=== PATIENT | male | born 1940 | race Caucasian/White ===

== ENCOUNTER 2023-12-17 16:57 | Inpatient (IN) | payer MEDICARE, OTHER ==
[~2023-12-17] VITALS: Ht 177.8 cm; Wt 74.0 kg
[2023-12-17 19:30] LABS: Basophils # (auto) 0.1 10 ^3/uL (0-0.2); Basophils % (auto) 1.3 % (0.0-2.0); Eosinophils # (auto) 0.4 10 ^3/uL (0-0.8); Eosinophils % (auto) 5.8 % (0.0-7.0); Hemoglobin 9.3 g/dL (13.5-17.5); Lymphocytes % (auto) 14.7 % (10.0-50.0); Monocytes # (auto) 0.5 10 ^3/uL (0-1.3); Monocytes % (auto) 7.5 % (0.0-12.0); Neutrophils % (auto) 70.7 % (37.0-80.0); Red Blood Cells 2.99 10^6/uL (4.5-5.90); Red Cell Distribution Width 16.6 % (11.8-14.3); White Blood Cell 7.1 10^3/uL (4.4-10.8)
[2023-12-17 19:40] LABS: Chloride 108 mmol/L (98-107); Sodium 142 mmol/L (136-145)
[2023-12-17 19:42] LABS: Calcium 8.8 mg/dL (8.5-10.1)
[2023-12-17 19:46] LABS: BUN/Creatinine Ratio 5.3 (10.0-20.0); Blood Urea Nitrogen 22 mg/dL (9-23); Glucose 150 mg/dL (74-106)
[2023-12-17 19:55] LABS: Anion Gap 5 (5-15); Carbon Dioxide 29 mmol/L (20-30)
[2023-12-17] MEDS ORDERED: AZITHROMYCIN 500MG/ 250ML 250 ML IV ONE (23:45)
[2023-12-17] MEDS ORDERED: PIPERACILLIN-TAZOB 3.375GM 100 ML IV ONE (23:45)
[2023-12-17] MEDS ORDERED: CLOPIDOGREL BISULFATE 75 MG TAB PO ONE (23:45)
[2023-12-18] MEDS ORDERED: DEXTROSE (50%) 50ML SYRG IV PRN (01:00)
[2023-12-18] MEDS ORDERED: ONDANSETRON HCL 4 MG/2 ML VIAL IV PRN (01:00)
[2023-12-18] MEDS ORDERED: AZITHROMYCIN 500MG/ 250ML 250 ML IV SCH (05:00)
[2023-12-18 08:10] VITALS: RESP 14; O2SAT 96
[2023-12-18] MEDS: ACCU-CHEK COMFORT CURVE STRIP VI SCH ×4 (09:50→22:45)
[2023-12-18] MEDS: LEVOTHYROXINE SODIUM 25 MCG TAB PO SCH (09:51)
[2023-12-18] MEDS: InsuLIN REG 1unit/0.01ml Soln (100units/ml) SC SCH ×4 (09:51→22:00)
[2023-12-18] MEDS: CALCIUM ACETATE 667 MG CAP PO SCH ×3 (09:51→18:34)
[2023-12-18] MEDS ORDERED: SODIUM CHL 0.9% 1000 ML BAG XX ONE (10:00)
[2023-12-18] MEDS: TICAGRELOR 90 MG TAB PO SCH ×2 (10:11→23:10)
[2023-12-18] MEDS: NIFEdipine ER 30 MG TAB PO SCH (10:14)
[2023-12-18] MEDS: FUROSEMIDE 40 MG TAB PO SCH (10:14)
[2023-12-18] MEDS ORDERED: hydrALAZINE HCL 20 MG/ML VL IV PRN (10:30)
[2023-12-18 11:24] LABS: Basophils # (auto) 0.1 10 ^3/uL (0-0.2); Eosinophils # (auto) 0.3 10 ^3/uL (0-0.8); Hemoglobin 9.6 g/dL (13.5-17.5); Monocytes # (auto) 0.6 10 ^3/uL (0-1.3); White Blood Cell 7.9 10^3/uL (4.4-10.8)
[2023-12-18 11:27] LABS: Basophils % (auto) 0.8 % (0.0-2.0); Eosinophils % (auto) 3.8 % (0.0-7.0); Lymphocytes % (auto) 12.4 % (10.0-50.0); Mean Corpuscular Hemoglobin 31.4 pg (28.0-32.0); Mean Corpuscular Hgb Conc. 31.1 g/dL (32.0-36.0); Mean Corpuscular Volume 100.8 fL (80.0-100.0); Monocytes % (auto) 7.1 % (0.0-12.0); Neutrophils % (auto) 75.9 % (37.0-80.0); Nucleated Red Blood Cells % 0.3 %; Red Blood Cells 3.08 10^6/uL (4.5-5.90); Red Cell Distribution Width 16.7 % (11.8-14.3)
[2023-12-18 11:39] LABS: INR 1.04 (0.9-1.15); Partial Thromboplastin Time 32.1 SEC (24.5-34.5); Prothrombin Time 10.9 sec (9.3-11.8)
[2023-12-18 11:48] LABS: Alkaline Phosphatase 88 U/L (46-116); Anion Gap 9 (5-15); BUN/Creatinine Ratio 4.7 (10.0-20.0); Blood Urea Nitrogen 21 mg/dL (9-23); Calcium 8.6 mg/dL (8.5-10.1); Carbon Dioxide 25 mmol/L (20-30); Chloride 107 mmol/L (98-107); Glucose 164 mg/dL (74-106); Potassium 3.9 mmol/L (3.5-5.1); Sodium 141 mmol/L (136-145); Triglycerides 115 mg/dL (< 150)
[2023-12-18 11:49] LABS: LDL Cholesterol 53 mg/dL (< 100)
[2023-12-18 11:50] LABS: Alanine Aminotransferase < 9 U/L (7-40); Albumin 3.5 g/dL (3.2-4.8); Aspartate Aminotransferase 12 U/L (13-40); Bilirubin, Total 0.4 mg/dL (0.2-1.0); Cholesterol 106 mg/dL (< 200); HDL Cholesterol 26 mg/dL (40-59); Total Protein 6.5 g/dL (5.7-8.2)
[2023-12-18 11:56] LABS: CRP High Sensitivity 3.84 mg/dL (<1.0)
[2023-12-18 12:00] LABS: Lipase 28 U/L (12-53); Magnesium 2.1 mg/dL (1.6-2.6)
[2023-12-18] MEDS ORDERED: cefTRIAXone 1GM/50ML D5W 50 ML IV ONE (12:45)
[2023-12-18] MEDS ORDERED: PIPERACILLIN-TAZOB 2.25GM 0.75 GM in D5W 5% 50 ML IV SCH (15:45)
[2023-12-18] MEDS ORDERED: VANCOMYCIN PER PHARMACY 0 MG IV SCH (15:45)
[2023-12-18 16:56] LABS: Urine Epithelial Cast None Seen /hpf (<5)
[2023-12-18 17:23] LABS: Urine Bacteria NONE SEEN /hpf (None Seen); Urine Blood Negative /uL (Negative); Urine Clarity Clear (Clear); Urine Color Yellow (Yellow); Urine Protein, UAD 2+ (Negative); Urine Specific Gravity 1.012 (1.001-1.035); Urine Urobilinogen Normal (Negative); Urine WBC 1 /hpf (0 - 3); Urine pH 7.5 (5.0-8.0)
[2023-12-18 17:25] LABS: Amphetamine Screen, Urine Neg (NEGATIVE); Barbiturate Scree,Urine Neg (NEGATIVE); Benzodiazephine Screen, Urine Neg (NEGATIVE); Cannabinoid Screen, Urine Neg (NEGATIVE); Cocaine Screen, Urine Neg (NEGATIVE); Opiate Scree,Urine Neg (NEGATIVE); Phencyclidine Screen, Urine Neg (NEGATIVE)
[2023-12-18] MEDS ORDERED: VANCOMYCIN 1GM/200ML 200 ML IV ONE (17:30)
[2023-12-18] MEDS: TAMSULOSIN HYDROCHLORIDE 0.4 MG CAP PO SCH (18:34)
[2023-12-18 19:30] VITALS: PULSE 74; RESP 16; O2SAT 94
[2023-12-18] MEDS ORDERED: EPOETIN ALFA-EPBX 4,000 UNIT/ML VIAL SC ONE (21:00)
[2023-12-18 21:50] VITALS: PULSE 65; RESP 14; O2SAT 97
[2023-12-18] MEDS: LATANOPROST 0.005 % OPTH(EYE) SOL 2.5ML EACHEYE SCH (22:00)
[2023-12-18] MEDS: PIPERACILLIN-TAZOB 2.25GM 50 ML IV SCH (22:38)
[2023-12-18] MEDS: ATORVASTATIN 20 MG TAB PO SCH (23:10)
[2023-12-19] VITALS (8 sets, daily range): BP systolic 113–141; BP diastolic 45–62; PULSE 55–96; RESP 16–18; TEMP 97.4–97.8; O2SAT 91–100
[2023-12-19] MEDS ORDERED: ASCO500T16 PO (02:42)
[2023-12-19] MEDS ORDERED: B-CO-5 PO (02:42)
[2023-12-19] MEDS ORDERED: ASPI-543 PO (02:42)
[2023-12-19] MEDS ORDERED: TICA90TA PO (02:42)
[2023-12-19] MEDS ORDERED: INSLISPI SC (02:42)
[2023-12-19] MEDS ORDERED: LEVO75TA6 PO (02:42)
[2023-12-19] MEDS ORDERED: LOSA25TA15 PO (02:42)
[2023-12-19] MEDS ORDERED: GABA-1250 PO (02:42)
[2023-12-19] MEDS ORDERED: PANT40T PO (02:42)
[2023-12-19] MEDS ORDERED: ATOR40TA52 PO (02:42)
[2023-12-19] MEDS ORDERED: LATA0.008 EACHEYE (02:42)
[2023-12-19] MEDS ORDERED: BISA10SU45 RE (02:42)
[2023-12-19] MEDS ORDERED: CALC10TA PO (02:42)
[2023-12-19] MEDS ORDERED: TAMS-35 PO (02:42)
[2023-12-19] MEDS ORDERED: TRAM50TA2 PO (02:42)
[2023-12-19 02:59] LABS: Urine Epithelial Cast None Seen /hpf (<5)
[2023-12-19 03:21] LABS: Urine Bacteria NONE SEEN /hpf (None Seen); Urine Blood Negative /uL (Negative); Urine Clarity Clear (Clear); Urine Color Colorless (Yellow); Urine Protein, UAD 1+ (Negative); Urine Urobilinogen Normal (Negative); Urine WBC 1 /hpf (0 - 3)
[2023-12-19] MEDS: ACCU-CHEK COMFORT CURVE STRIP VI SCH ×4 (05:52→21:49)
[2023-12-19] MEDS: InsuLIN REG 1unit/0.01ml Soln (100units/ml) SC SCH ×4 (05:55→22:08)
[2023-12-19 06:54] LABS: Basophils # (auto) 0.1 10 ^3/uL (0-0.2); Basophils % (auto) 1.3 % (0.0-2.0); Eosinophils # (auto) 0.4 10 ^3/uL (0-0.8); Eosinophils % (auto) 4.9 % (0.0-7.0); Hematocrit 27.7 % (41.0-53.0); Lymphocytes % (auto) 13.6 % (10.0-50.0); Mean Corpuscular Hemoglobin 31.4 pg (28.0-32.0); Mean Corpuscular Hgb Conc. 32.5 g/dL (32.0-36.0); Mean Corpuscular Volume 96.5 fL (80.0-100.0); Monocytes # (auto) 0.6 10 ^3/uL (0-1.3); Monocytes % (auto) 8.7 % (0.0-12.0); Neutrophils # (auto) 5.3 10 ^3/uL (1.6-8.6); Neutrophils % (auto) 71.5 % (37.0-80.0); Red Blood Cells 2.87 10^6/uL (4.5-5.90); Red Cell Distribution Width 16.4 % (11.8-14.3); White Blood Cell 7.4 10^3/uL (4.4-10.8)
[2023-12-19 07:12] LABS: Alkaline Phosphatase 79 U/L (46-116); Anion Gap 9 (5-15); BUN/Creatinine Ratio 4.8 (10.0-20.0); Blood Urea Nitrogen 23 mg/dL (9-23); Calcium 8.6 mg/dL (8.5-10.1); Carbon Dioxide 25 mmol/L (20-30); Chloride 108 mmol/L (98-107); Glucose 127 mg/dL (74-106); Potassium 3.9 mmol/L (3.5-5.1); Sodium 142 mmol/L (136-145)
[2023-12-19 07:13] LABS: Albumin 3.2 g/dL (3.2-4.8); Aspartate Aminotransferase 14 U/L (13-40); Bilirubin, Total 0.4 mg/dL (0.2-1.0); Total Protein 5.9 g/dL (5.7-8.2)
[2023-12-19 07:21] LABS: CRP High Sensitivity 3.74 mg/dL (<1.0)
[2023-12-19 07:24] LABS: Alanine Aminotransferase < 9 U/L (7-40)
[2023-12-19] MEDS: ASPirin 81 mg TAB PO SCH (08:55)
[2023-12-19] MEDS: LEVOTHYROXINE SODIUM 25 MCG TAB PO SCH (08:55)
[2023-12-19] MEDS: FUROSEMIDE 40 MG TAB PO SCH (08:56)
[2023-12-19] MEDS: GABAPENTIN 100 MG CAP PO SCH (08:56)
[2023-12-19] MEDS: CALCIUM ACETATE 667 MG CAP PO SCH ×3 (08:56→17:42)
[2023-12-19] MEDS: NIFEdipine ER 30 MG TAB PO SCH (08:56)
[2023-12-19] MEDS: PIPERACILLIN-TAZOB 2.25GM 50 ML IV SCH (08:57)
[2023-12-19] MEDS: TICAGRELOR 90 MG TAB PO SCH ×2 (08:57→21:49)
[2023-12-19] MEDS ORDERED: cefTRIAXone 1GM/50ML D5W 50 ML IV SCH (09:00)
[2023-12-19] MEDS: TAMSULOSIN HYDROCHLORIDE 0.4 MG CAP PO SCH (17:42)
[2023-12-19] MEDS: LATANOPROST 0.005 % OPTH(EYE) SOL 2.5ML EACHEYE SCH (21:47)
[2023-12-19] MEDS: ATORVASTATIN 20 MG TAB PO SCH (21:48)
[2023-12-19] MEDS: PIPERACILLIN-TAZOB 3.375GM 100 ML IV SCH (21:51)
[2023-12-20 05:00] VITALS: BP 139/71; PULSE 66; RESP 18; TEMP 98.6; O2SAT 96
[2023-12-20] MEDS: ACCU-CHEK COMFORT CURVE STRIP VI SCH ×4 (06:23→22:59)
[2023-12-20] MEDS: LEVOTHYROXINE SODIUM 25 MCG TAB PO SCH (06:23)
[2023-12-20] MEDS: InsuLIN REG 1unit/0.01ml Soln (100units/ml) SC SCH ×4 (06:26→22:00)
[2023-12-20 06:53] LABS: Albumin 3.3 g/dL (3.2-4.8); Alkaline Phosphatase 79 U/L (46-116); Anion Gap 5 (5-15); Aspartate Aminotransferase 12 U/L (13-40); BUN/Creatinine Ratio 4.6 (10.0-20.0); Bilirubin, Total 0.4 mg/dL (0.2-1.0); Blood Urea Nitrogen 20 mg/dL (9-23); Calcium 8.6 mg/dL (8.5-10.1); Carbon Dioxide 29 mmol/L (20-30); Chloride 107 mmol/L (98-107); Glucose 114 mg/dL (74-106); Sodium 141 mmol/L (136-145); Total Protein 6.1 g/dL (5.7-8.2)
[2023-12-20 06:55] LABS: Alanine Aminotransferase < 9 U/L (7-40); Basophils # (auto) 0.1 10 ^3/uL (0-0.2); Basophils % (auto) 1.4 % (0.0-2.0); Eosinophils # (auto) 0.3 10 ^3/uL (0-0.8); Eosinophils % (auto) 5.2 % (0.0-7.0); Hematocrit 27.9 % (41.0-53.0); Hemoglobin 8.8 g/dL (13.5-17.5); Lymphocytes # (auto) 1.1 10 ^3/uL (0.4-5.4); Lymphocytes % (auto) 16.2 % (10.0-50.0); Mean Corpuscular Hemoglobin 30.9 pg (28.0-32.0); Mean Corpuscular Hgb Conc. 31.6 g/dL (32.0-36.0); Mean Corpuscular Volume 97.8 fL (80.0-100.0); Monocytes # (auto) 0.6 10 ^3/uL (0-1.3); Neutrophils # (auto) 4.6 10 ^3/uL (1.6-8.6); Neutrophils % (auto) 68.2 % (37.0-80.0); Red Blood Cells 2.85 10^6/uL (4.5-5.90); Red Cell Distribution Width 16.2 % (11.8-14.3); White Blood Cell 6.7 10^3/uL (4.4-10.8)
[2023-12-20 07:01] LABS: CRP High Sensitivity 4.77 mg/dL (<1.0)
[2023-12-20] MEDS: CALCIUM ACETATE 667 MG CAP PO SCH ×3 (08:35→18:29)
[2023-12-20 08:50] VITALS: BP 136/64; PULSE 64; RESP 16; TEMP 98.2; O2SAT 98
[2023-12-20] MEDS: TICAGRELOR 90 MG TAB PO SCH ×2 (09:57→23:04)
[2023-12-20] MEDS: ASPirin 81 mg TAB PO SCH (09:57)
[2023-12-20] MEDS: PIPERACILLIN-TAZOB 3.375GM 100 ML IV SCH ×2 (09:57→22:00)
[2023-12-20] MEDS: NIFEdipine ER 30 MG TAB PO SCH (09:58)
[2023-12-20] MEDS: GABAPENTIN 100 MG CAP PO SCH (09:59)
[2023-12-20] MEDS: FUROSEMIDE 40 MG TAB PO SCH (09:59)
[2023-12-20 12:38] VITALS: BP 139/59; PULSE 64; RESP 16; TEMP 97.4; O2SAT 99
[2023-12-20] MEDS: ACETAMINOPHEN 325 MG TAB PO PRN ×2 (15:27→21:46)
[2023-12-20 17:00] VITALS: BP 103/43; PULSE 59; RESP 16; TEMP 97.4; O2SAT 98
[2023-12-20] MEDS: TAMSULOSIN HYDROCHLORIDE 0.4 MG CAP PO SCH (18:29)
[2023-12-20 20:00] VITALS: BP 148/46; PULSE 59; RESP 14; TEMP 97.7; O2SAT 98
[2023-12-20 22:00] VITALS: BP 114/46; PULSE 59; RESP 14; TEMP 97.5; O2SAT 98
[2023-12-20] MEDS: LATANOPROST 0.005 % OPTH(EYE) SOL 2.5ML EACHEYE SCH (22:00)
[2023-12-20] MEDS ORDERED: ATORVASTATIN 20 MG TAB PO SCH (22:00)
[2023-12-21 05:00] VITALS: BP 138/79; PULSE 65; RESP 16; TEMP 98; O2SAT 100
[2023-12-21 06:05] LABS: Basophils # (auto) 0.1 10 ^3/uL (0-0.2); Basophils % (auto) 1.3 % (0.0-2.0); Eosinophils # (auto) 0.5 10 ^3/uL (0-0.8); Eosinophils % (auto) 6.6 % (0.0-7.0); Hematocrit 26.8 % (41.0-53.0); Hemoglobin 8.8 g/dL (13.5-17.5); Lymphocytes # (auto) 1.5 10 ^3/uL (0.4-5.4); Lymphocytes % (auto) 22.2 % (10.0-50.0); Mean Corpuscular Hemoglobin 31.8 pg (28.0-32.0); Mean Corpuscular Hgb Conc. 32.6 g/dL (32.0-36.0); Mean Corpuscular Volume 97.5 fL (80.0-100.0); Monocytes # (auto) 0.6 10 ^3/uL (0-1.3); Monocytes % (auto) 8.2 % (0.0-12.0); Neutrophils # (auto) 4.3 10 ^3/uL (1.6-8.6); Neutrophils % (auto) 61.7 % (37.0-80.0); Red Blood Cells 2.75 10^6/uL (4.5-5.90); White Blood Cell 6.9 10^3/uL (4.4-10.8)
[2023-12-21] MEDS: ACCU-CHEK COMFORT CURVE STRIP VI SCH ×3 (06:11→17:18)
[2023-12-21] MEDS: InsuLIN REG 1unit/0.01ml Soln (100units/ml) SC SCH ×3 (06:12→17:19)
[2023-12-21] MEDS: LEVOTHYROXINE SODIUM 25 MCG TAB PO SCH (06:15)
[2023-12-21 06:22] LABS: Albumin 3.3 g/dL (3.2-4.8); Alkaline Phosphatase 76 U/L (46-116); Anion Gap 5 (5-15); Aspartate Aminotransferase 11 U/L (13-40); Bilirubin, Total 0.4 mg/dL (0.2-1.0); Blood Urea Nitrogen 26 mg/dL (9-23); Calcium 8.8 mg/dL (8.5-10.1); Carbon Dioxide 28 mmol/L (20-30); Chloride 105 mmol/L (98-107); Glucose 105 mg/dL (74-106); Potassium 4.3 mmol/L (3.5-5.1); Sodium 138 mmol/L (136-145)
[2023-12-21 06:26] LABS: Alanine Aminotransferase < 9 U/L (7-40)
[2023-12-21 08:00] VITALS: BP 132/61; PULSE 64; RESP 18; TEMP 98.8
[2023-12-21 09:00] VITALS: BP 146/56; PULSE 68; RESP 18
[2023-12-21] MEDS: PIPERACILLIN-TAZOB 3.375GM 100 ML IV SCH (10:58)
[2023-12-21] MEDS: ACETAMINOPHEN 325 MG TAB PO PRN (10:59)
[2023-12-21] MEDS: NIFEdipine ER 30 MG TAB PO SCH (11:01)
[2023-12-21] MEDS: GABAPENTIN 100 MG CAP PO SCH (11:02)
[2023-12-21] MEDS: CALCIUM ACETATE 667 MG CAP PO SCH ×3 (11:02→19:09)
[2023-12-21] MEDS: FUROSEMIDE 40 MG TAB PO SCH (11:02)
[2023-12-21] MEDS: ASPirin 81 mg TAB PO SCH (11:02)
[2023-12-21] MEDS: TICAGRELOR 90 MG TAB PO SCH (11:20)
[2023-12-21 13:00] VITALS: BP 134/60; PULSE 69; RESP 16; TEMP 98; O2SAT 97
[2023-12-21 17:00] VITALS: BP 112/95; PULSE 67; RESP 18; TEMP 97.9; O2SAT 93
[2023-12-21] MEDS ORDERED: VANCOMYCIN 1GM/200ML 200 ML IV ONE (17:00)
[2023-12-21] MEDS: TAMSULOSIN HYDROCHLORIDE 0.4 MG CAP PO SCH (19:09)
== END 2023-12-21 18:30 | DRG 64 ==
LOC: ER 16:57 → EDBD 16:57 → OVERFLOW 12-18 01:03 → WEST WING 12-18 23:09
PROVIDERS: ADMIT Internal Medicine; ATTEND Emergency Medicine
PROC: 5A1D70Z Performance of Urinary Filtration, Intermittent, Less than 6 Hours Per Day (ICD-10-PCS; principal; 2023-12-19)
PROC: 5A1D70Z Performance of Urinary Filtration, Intermittent, Less than 6 Hours Per Day (ICD-10-PCS; 2023-12-21)
DX: I63.239 Cerebral infarction due to unspecified occlusion or stenosis of unspecified carotid artery (principal); J15.69 Pneumonia due to other Gram-negative bacteria; J96.01 Acute respiratory failure with hypoxia; N18.6 End stage renal disease; J69.0 Pneumonitis due to inhalation of food and vomit; G81.91 Hemiplegia, unspecified affecting right dominant side; I13.2 Hypertensive heart and chronic kidney disease with heart failure and with stage 5 chronic kidney disease, or end stage renal disease; E11.65 Type 2 diabetes mellitus with hyperglycemia; E11.22 Type 2 diabetes mellitus with diabetic chronic kidney disease; I25.10 Atherosclerotic heart disease of native coronary artery without angina pectoris; I50.9 Heart failure, unspecified; R47.1 Dysarthria and anarthria; E03.9 Hypothyroidism, unspecified; D64.9 Anemia, unspecified; I34.81 Nonrheumatic mitral (valve) annulus calcification; Z99.2 Dependence on renal dialysis; I25.2 Old myocardial infarction; Z79.82 Long term (current) use of aspirin; Z79.899 Other long term (current) drug therapy; Z79.4 Long term (current) use of insulin; Z83.3 Family history of diabetes mellitus; Z82.49 Family history of ischemic heart disease and other diseases of the circulatory system; Z82.3 Family history of stroke; Z79.02 Long term (current) use of antithrombotics/antiplatelets; Z86.73 Personal history of transient ischemic attack (TIA), and cerebral infarction without residual deficits
CPT/HCPCS: 36415; 70450; 70551; 71045; 71250; 73700; 76604; 80048; 80053; 80061; 80202; 80307; 81001; 82306; 82607; 82962; 83036; 83690; 83735; 83880; 84443; 84484; 85025; 85610; 85730; 86141; 87040; 87081; 87086; 87340; 90935; 93005; 93306; 93886; 93925; 96365; 96366; 96367; 97163; G0378; J1815; J2543

== ENCOUNTER 2023-12-27 17:27 | Emergency (ER) | payer MEDICARE ==
[~2023-12-27] VITALS: Ht 177.8 cm; Wt 71.5 kg
[~2023-12-27 17:27] MED LIST: ASCO500T16 PO; ASPI-543 PO; ATOR40TA52 PO; B-CO-5 PO; BISA10SU45 RE; CALC10TA PO; GABA-1250 PO; INSLISPI SC; LATA0.008 EACHEYE; LEVO75TA6 PO; LOSA25TA15 PO; PANT40T PO; TAMS-35 PO; TICA90TA PO; TRAM50TA2 PO
[2023-12-27 17:45] VITALS: PULSE 71; RESP 12; O2SAT 95
[2023-12-27 18:25] LABS: Chloride 107 mmol/L (98-107); Potassium 3.7 mmol/L (3.5-5.1); Sodium 141 mmol/L (136-145)
[2023-12-27 18:26] LABS: Anion Gap 6 (5-15); Calcium 8.5 mg/dL (8.5-10.1); Carbon Dioxide 28 mmol/L (20-30)
[2023-12-27 18:31] LABS: BUN/Creatinine Ratio 9.8 (10.0-20.0); Blood Urea Nitrogen 47 mg/dL (9-23); Glucose 142 mg/dL (74-106)
[2023-12-27 18:40] LABS: Basophils # (auto) 0.1 10 ^3/uL (0-0.2); Basophils % (auto) 1.6 % (0.0-2.0); Eosinophils # (auto) 0.5 10 ^3/uL (0-0.8); Eosinophils % (auto) 6.6 % (0.0-7.0); Hematocrit 20.2 % (41.0-53.0); Lymphocytes # (auto) 1.5 10 ^3/uL (0.4-5.4); Lymphocytes % (auto) 20.7 % (10.0-50.0); Mean Corpuscular Hemoglobin 30.3 pg (28.0-32.0); Mean Corpuscular Hgb Conc. 32.5 g/dL (32.0-36.0); Mean Corpuscular Volume 93.3 fL (80.0-100.0); Monocytes # (auto) 0.5 10 ^3/uL (0-1.3); Monocytes % (auto) 6.7 % (0.0-12.0); Neutrophils # (auto) 4.8 10 ^3/uL (1.6-8.6); Neutrophils % (auto) 64.4 % (37.0-80.0); Nucleated Red Blood Cells % 0.1 %; Red Blood Cells 2.17 10^6/uL (4.5-5.90); Red Cell Distribution Width 15.8 % (11.8-14.3); White Blood Cell 7.5 10^3/uL (4.4-10.8)
[2023-12-27 18:46] LABS: Hemoglobin 6.6 g/dL (13.5-17.5)
[2023-12-27 18:58] LABS: Partial Thromboplastin Time 28.6 SEC (24.5-34.5); Prothrombin Time 10.5 sec (9.3-11.8)
[2023-12-27 19:01] LABS: Albumin 3.4 g/dL (3.2-4.8); Alkaline Phosphatase 80 U/L (46-116); Anion Gap 6 (5-15); Aspartate Aminotransferase 9 U/L (13-40); BUN/Creatinine Ratio 7.8 (10.0-20.0); Bilirubin, Total 0.2 mg/dL (0.2-1.0); Blood Urea Nitrogen 38 mg/dL (9-23); Calcium 8.2 mg/dL (8.7-10.4); Carbon Dioxide 28 mmol/L (20-30); Chloride 107 mmol/L (98-107); Glucose 118 mg/dL (74-106); Magnesium 2.3 mg/dL (1.6-2.6); Potassium 4.2 mmol/L (3.5-5.1); Sodium 141 mmol/L (136-145); Total Protein 6.1 g/dL (5.7-8.2)
[2023-12-27 19:03] LABS: Alanine Aminotransferase < 9 U/L (7-40)
[2023-12-27 19:30] VITALS: PULSE 66; RESP 14; O2SAT 97
[2023-12-27 20:49] LABS: Urine Bacteria NONE SEEN /hpf (None Seen); Urine Blood 2+ /uL (Negative); Urine Clarity Clear (Clear); Urine Color STRAW (Yellow); Urine Hyaline Cast FEW /lpf (0 - 2); Urine Protein, UAD 1+ (Negative); Urine Specific Gravity 1.012 (1.001-1.035); Urine Urobilinogen Normal (Negative); Urine WBC 2 /hpf (0 - 3)
[2023-12-27 21:35] VITALS: BP 132/32; PULSE 65; RESP 14; TEMP 98.1
[2023-12-27 21:45] VITALS: BP 158/46; PULSE 66; RESP 11; TEMP 98.1
[2023-12-27 22:00] VITALS: BP 145/20; PULSE 66; RESP 10; TEMP 98.2
[2023-12-27 23:45] VITALS: BP 107/58; PULSE 71; RESP 14; TEMP 97.8
[2023-12-28] MEDS ORDERED: ACETAMINOPHEN 325 MG TAB PO ONE
[2023-12-28 08:22] LABS: Hemoglobin 7.3 g/dL (13.5-17.5)
[2023-12-28 12:00] VITALS: BP 161/38; PULSE 72; RESP 18; O2SAT 98
== END 2023-12-27 20:40 | disposition home or self-care (01) ==
LOC: ER 17:27 → EDBD 17:27 → EDUNIT# 17:27 → ER 20:40
DX: D64.9 Anemia, unspecified (principal); E11.22 Type 2 diabetes mellitus with diabetic chronic kidney disease; I12.0 Hypertensive chronic kidney disease with stage 5 chronic kidney disease or end stage renal disease; N18.6 End stage renal disease; K21.9 Gastro-esophageal reflux disease without esophagitis; E78.5 Hyperlipidemia, unspecified; Z86.73 Personal history of transient ischemic attack (TIA), and cerebral infarction without residual deficits; Z88.6 Allergy status to analgesic agent
CPT/HCPCS: 36415; 36430; 80048; 80053; 81001; 83735; 85014; 85018; 85025; 85610; 85730; 86850; 86900; 86901; 86920; 99285; P9016

== ENCOUNTER 2024-01-03 09:58 | Day surgery (SDC) | payer MEDICARE, BC ==
[2024-01-03] VITALS (9 sets, daily range): BP systolic 115–151; BP diastolic 56–66; PULSE 60–72; RESP 12–16; TEMP 98.7; O2SAT 95–99
[2024-01-03] MEDS ORDERED: IODIXANOL 320MG/ML 100ML BTL IV ONE ×2 (12:42→13:31)
[2024-01-03] MEDS ORDERED: LIDOCAINE 2%HCL (LOCAL ANESTH.) INJ 20ML MDV ONE (12:42)
[2024-01-03] MEDS ORDERED: ANGIOMAX 250 MG VIAL IV ONE (12:44)
[2024-01-03] MEDS ORDERED: fentaNYL CITRATE 100 MCG/2 ML VL ONE ×2 (12:44→13:44)
[2024-01-03] MEDS ORDERED: SODIUM CHL 0.9% 50 ML ONE (12:45)
[2024-01-03] MEDS ORDERED: MIDAZOLAM HCL 2MG/2ML 2ml VIAL (1mg/ml) ONE ×2 (12:45→13:35)
[2024-01-03] MEDS ORDERED: HYDROmorphone HCL 2 MG/ML VL/or syr ONE (13:56)
== END 2024-01-03 17:40 | disposition home or self-care (01) ==
LOC: CATH 09:58
PROVIDERS: ATTEND Internal Medicine
DX: E11.51 Type 2 diabetes mellitus with diabetic peripheral angiopathy without gangrene (principal); I70.203 Unspecified atherosclerosis of native arteries of extremities, bilateral legs; I13.2 Hypertensive heart and chronic kidney disease with heart failure and with stage 5 chronic kidney disease, or end stage renal disease; N18.6 End stage renal disease; I50.22 Chronic systolic (congestive) heart failure; E78.5 Hyperlipidemia, unspecified; Z99.2 Dependence on renal dialysis; Z79.899 Other long term (current) drug therapy; Z98.890 Other specified postprocedural states; I70.92 Chronic total occlusion of artery of the extremities
CPT/HCPCS: 37228; 75716; 76937; C1725; C1769; C1887; C1894; J0583; J1170; J1644; J2250; J3010; J7030; Q9967; 99152; 99153

== ENCOUNTER 2024-01-26 10:11 | Inpatient (IN) | payer MEDICARE, BC ==
[~2024-01-26] VITALS: Ht 182.9 cm; Wt 70.5 kg
[~2024-01-26 10:11] MED LIST changes: +ASPI1CAP8; -CALC10TA PO; +CALC667C PO; +FURO40TA4 PO; +NIFE1TAB30 PO; +NYS5LQ MT; +PANT40TA2 PO; +SIMV20TA20 PO; +TAMS0.4C36 PO; +TRAZ-227 PO
[2024-01-26 13:42] VITALS: BP 107/31; PULSE 72; RESP 15; TEMP 97.4; O2SAT 99
[2024-01-26] MEDS ORDERED: ONDANSETRON HCL 4 MG/2 ML VIAL IV PRN (15:15)
[2024-01-26] MEDS ORDERED: MAALOX PLUS or MAALOX 30 ML PO PRN (15:15)
[2024-01-26] MEDS ORDERED: TEMAZEPAM 15 MG CAP PO PRN (15:15)
[2024-01-26 16:09] LABS: Hemoglobin 8.6 g/dL (13.5-17.5); Lymphocytes # (auto) 0.9 10 ^3/uL (0.4-5.4); Lymphocytes % (auto) 9.6 % (10.0-50.0); Neutrophils # (auto) 7.7 10 ^3/uL (1.6-8.6); Red Blood Cells 3.11 10^6/uL (4.5-5.90)
[2024-01-26 16:10] LABS: Basophils # (auto) 0.2 10 ^3/uL (0-0.2); Basophils % (auto) 1.6 % (0.0-2.0); Eosinophils # (auto) 0.2 10 ^3/uL (0-0.8); Eosinophils % (auto) 2.5 % (0.0-7.0); Hematocrit 27.2 % (41.0-53.0); Mean Corpuscular Hemoglobin 27.7 pg (28.0-32.0); Mean Corpuscular Hgb Conc. 31.6 g/dL (32.0-36.0); Mean Corpuscular Volume 87.4 fL (80.0-100.0); Monocytes # (auto) 0.6 10 ^3/uL (0-1.3); Monocytes % (auto) 6.1 % (0.0-12.0); Neutrophils % (auto) 80.2 % (37.0-80.0); Red Cell Distribution Width 19.2 % (11.8-14.3); White Blood Cell 9.6 10^3/uL (4.4-10.8)
[2024-01-26 16:17] LABS: Chloride 105 mmol/L (98-107); Potassium 3.6 mmol/L (3.5-5.1); Sodium 140 mmol/L (136-145)
[2024-01-26 16:18] LABS: Anion Gap 6 (5-15); Carbon Dioxide 29 mmol/L (20-30)
[2024-01-26 16:19] LABS: Calcium 8.1 mg/dL (8.5-10.1)
[2024-01-26 16:23] LABS: Glucose 124 mg/dL (74-106)
[2024-01-26 16:24] LABS: BUN/Creatinine Ratio 2.9 (10.0-20.0); Blood Urea Nitrogen 8 mg/dL (9-23)
[2024-01-26 17:44] VITALS: BP 157/59; PULSE 75; RESP 15; TEMP 97.9; O2SAT 100
[2024-01-26 18:11] LABS: INR 1.04 (0.9-1.15); Partial Thromboplastin Time 33.8 SEC (24.5-34.5); Prothrombin Time 10.9 sec (9.3-11.8)
[2024-01-26] MEDS ORDERED: DEXTROSE (50%) 50ML SYRG IV PRN (18:30)
[2024-01-26 20:00] VITALS: PULSE 66; RESP 16; O2SAT 97
[2024-01-26] MEDS: HYDROcodone-ACET 5/325MG TAB PO PRN (20:56)
[2024-01-26 22:00] VITALS: BP 144/51; PULSE 66; RESP 16; TEMP 98.3; O2SAT 97
[2024-01-26] MEDS: InsuLIN REG 1unit/0.01ml Soln (100units/ml) SC SCH (22:00)
[2024-01-26] MEDS: SODIUM CHLOR 0.9% PF (SALINE LOCK) 10ML VIAL/SYR IV SCH (22:00)
[2024-01-26] MEDS: ACCU-CHEK COMFORT CURVE STRIP VI SCH (22:00)
[2024-01-27] VITALS (7 sets, daily range): BP systolic 104–151; BP diastolic 39–59; PULSE 66–80; RESP 16–22; TEMP 97.6–98.6; O2SAT 95–100
[2024-01-27 06:35] LABS: Basophils # (auto) 0.2 10 ^3/uL (0-0.2); Eosinophils # (auto) 0.3 10 ^3/uL (0-0.8)
[2024-01-27 06:38] LABS: Basophils % (auto) 2.3 % (0.0-2.0); Eosinophils % (auto) 3.8 % (0.0-7.0); Hemoglobin 8.2 g/dL (13.5-17.5); Lymphocytes # (auto) 1.2 10 ^3/uL (0.4-5.4); Lymphocytes % (auto) 16.9 % (10.0-50.0); Mean Corpuscular Hemoglobin 27.3 pg (28.0-32.0); Mean Corpuscular Hgb Conc. 31.5 g/dL (32.0-36.0); Mean Corpuscular Volume 86.8 fL (80.0-100.0); Monocytes # (auto) 0.6 10 ^3/uL (0-1.3); Monocytes % (auto) 8.2 % (0.0-12.0); Neutrophils # (auto) 4.7 10 ^3/uL (1.6-8.6); Neutrophils % (auto) 68.8 % (37.0-80.0); Nucleated Red Blood Cells % 0.1 %; Red Cell Distribution Width 19.2 % (11.8-14.3); White Blood Cell 6.9 10^3/uL (4.4-10.8)
[2024-01-27 06:48] LABS: INR 1.09 (0.9-1.15); Partial Thromboplastin Time 34.6 SEC (24.5-34.5); Prothrombin Time 11.4 sec (9.3-11.8)
[2024-01-27 06:52] LABS: Alkaline Phosphatase 76 U/L (46-116); Anion Gap 6 (5-15); Aspartate Aminotransferase 8 U/L (13-40); BUN/Creatinine Ratio 2.9 (10.0-20.0); Blood Urea Nitrogen 10 mg/dL (9-23); Calcium 7.8 mg/dL (8.7-10.4); Carbon Dioxide 29 mmol/L (20-30); Chloride 106 mmol/L (98-107); Glucose 96 mg/dL (74-106); Magnesium 1.9 mg/dL (1.6-2.6); Potassium 4.1 mmol/L (3.5-5.1); Sodium 141 mmol/L (136-145)
[2024-01-27 06:53] LABS: Bilirubin, Total 0.2 mg/dL (0.2-1.0); Total Protein 5.9 g/dL (5.7-8.2)
[2024-01-27 07:29] LABS: Alanine Aminotransferase < 9 U/L (7-40)
[2024-01-27] MEDS: BACITRACIN TOP OINT 1 UD PKG TOP ONE ×2 (08:32→09:48)
[2024-01-27] MEDS ORDERED: ONDANSETRON HCL 4 MG/2 ML VIAL ONE (08:38)
[2024-01-27] MEDS ORDERED: PROPOFOL 10 MG/ML 20 ML IV ONE (08:38)
[2024-01-27] MEDS ORDERED: GLYCOPYRROLATE 0.2 MG/ML 1ML VIAL ONE (08:38)
[2024-01-27] MEDS ORDERED: DexAMETHasone SOD PHOS 10MG/1ML VIAL INJ ONE (08:38)
[2024-01-27] MEDS ORDERED: KETOROLAC TROMETH 30 MG/ML 1ML VIAL ONE (08:38)
[2024-01-27] MEDS ORDERED: LIDOCAINE 2% (LOCAL ANESTH.) PF 5ml SDV ONE (08:38)
[2024-01-27] MEDS: ceFAZolin 1GM/50ML 0 ML IV ONE (08:59)
[2024-01-27] MEDS ORDERED: ceFAZolin 1GM VL ONE (09:04)
[2024-01-27] MEDS ORDERED: ePHEDrine SULFATE 50 MG/ML AMP ONE (09:12)
[2024-01-27] MEDS: ceFAZolin 1GM/50ML 50 ML IV ONE (09:17)
[2024-01-27] MEDS ORDERED: fentaNYL CITRATE 100 MCG/2 ML VL ONE (09:18)
[2024-01-27] MEDS ORDERED: METOPROLOL TARTRATE 1MG/1ML-5ML VIAL IV ONE (09:25)
[2024-01-27] MEDS: ceFAZolin 1GM VL ONE (10:28)
[2024-01-27] MEDS: ROPIVACAINE 0.5% (5MG/ML) 20ML AMPULE IJ ONE (10:29)
[2024-01-27] MEDS ORDERED: FLUMAZENIL 0.1 MG/ML INJ 10ML MDV IV PRN (10:30)
[2024-01-27] MEDS ORDERED: NALOXONE HCL 0.4 MG/ML VIAL IV PRN (10:30)
[2024-01-27] MEDS ORDERED: fentaNYL CITRATE 100 MCG/2 ML VL IV PRN (10:30)
[2024-01-27] MEDS ORDERED: HYDROmorphone HCL 2 MG/ML VL/or syr IV PRN (10:30)
[2024-01-27] MEDS ORDERED: ONDANSETRON HCL 4 MG/2 ML VIAL IV PRN (10:30)
[2024-01-27] MEDS ORDERED: ePHEDrine SULFATE 50 MG/ML AMP IV PRN (10:30)
[2024-01-27] MEDS ORDERED: hydrALAZINE HCL 20 MG/ML VL IV PRN (10:30)
[2024-01-27] MEDS ORDERED: LABETALOL HCL 5 MG/ML 4ML SYRINGE IV PRN (10:30)
[2024-01-27] MEDS: DexAMETHasone SOD PHOS 4 MG/1ML SDV INJ ONE (10:42)
[2024-01-27] MEDS ORDERED: VANCOMYCIN PER PHARMACY 0 MG IV SCH (13:30)
[2024-01-27 13:52] LABS: Triglycerides 104 mg/dL (< 150)
[2024-01-27 13:53] LABS: LDL Cholesterol 74 mg/dL (< 100)
[2024-01-27 13:54] LABS: Cholesterol 116 mg/dL (< 200); HDL Cholesterol 23 mg/dL (40-59)
[2024-01-27] MEDS: VANCOMYCIN 1GM/200ML 200 ML IV ONE (15:17)
[2024-01-27] MEDS: MORPHINE SULFATE INJ 2 MG/ml SYRG IV PRN (16:40)
[2024-01-27] MEDS: cefTRIAXone 1GM/50ML D5W 50 ML IV SCH (18:00)
[2024-01-27] MEDS: ACETAMINOPHEN 325 MG TAB PO PRN (18:59)
[2024-01-27] MEDS: ATORVASTATIN 20 MG TAB PO SCH (21:26)
[2024-01-28 04:54] VITALS: BP 162/88; PULSE 65; RESP 17; TEMP 97.4; O2SAT 98
[2024-01-28] MEDS: SODIUM CHL 0.9% 1000 ML BAG XX ONE (06:35)
[2024-01-28 07:07] LABS: Eosinophils # (auto) 0 10 ^3/uL (0-0.8); Hemoglobin 7.5 g/dL (13.5-17.5); Mean Corpuscular Hemoglobin 27.6 pg (28.0-32.0); Red Blood Cells 2.72 10^6/uL (4.5-5.90); Red Cell Distribution Width 19.2 % (11.8-14.3)
[2024-01-28 07:09] LABS: Basophils # (auto) 0.1 10 ^3/uL (0-0.2); Basophils % (auto) 0.8 % (0.0-2.0); Eosinophils % (auto) 0.1 % (0.0-7.0); Hematocrit 23.6 % (41.0-53.0); Lymphocytes # (auto) 1.1 10 ^3/uL (0.4-5.4); Lymphocytes % (auto) 12.8 % (10.0-50.0); Mean Corpuscular Hgb Conc. 31.8 g/dL (32.0-36.0); Mean Corpuscular Volume 86.9 fL (80.0-100.0); Monocytes # (auto) 0.8 10 ^3/uL (0-1.3); Monocytes % (auto) 9.8 % (0.0-12.0); Neutrophils # (auto) 6.6 10 ^3/uL (1.6-8.6); Neutrophils % (auto) 76.5 % (37.0-80.0); White Blood Cell 8.7 10^3/uL (4.4-10.8)
[2024-01-28 07:22] LABS: % Iron Saturation 11.4 % (20-55); Alkaline Phosphatase 76 U/L (46-116); Anion Gap 7 (5-15); Aspartate Aminotransferase 9 U/L (13-40); BUN/Creatinine Ratio 4.6 (10.0-20.0); Blood Urea Nitrogen 20 mg/dL (9-23); Calcium 7.8 mg/dL (8.5-10.1); Carbon Dioxide 27 mmol/L (20-30); Chloride 104 mmol/L (98-107); Glucose 182 mg/dL (74-106); Potassium 3.9 mmol/L (3.5-5.1); Sodium 138 mmol/L (136-145)
[2024-01-28 07:23] LABS: Bilirubin, Total < 0.2 mg/dL (0.2-1.0); Total Protein 5.8 g/dL (5.7-8.2)
[2024-01-28 07:29] LABS: Alanine Aminotransferase < 9 U/L (7-40)
[2024-01-28 09:25] VITALS: BP 124/52; PULSE 59; RESP 19; TEMP 97.7; O2SAT 98
[2024-01-28] MEDS: ASPirin 81 mg TAB PO SCH (12:40)
[2024-01-28 14:47] VITALS: BP 143/49; PULSE 65; RESP 20; TEMP 97.4; O2SAT 97
[2024-01-28] MEDS: VANCOMYCIN 500 MG in D5W 5% 100 ML IV ONE (15:20)
[2024-01-28 16:50] VITALS: BP 122/47; PULSE 61; RESP 19; TEMP 97.7; O2SAT 97
[2024-01-28 18:42] LABS: Potassium 3.7 mmol/L (3.5-5.1)
[2024-01-28 18:43] LABS: Calcium 7.7 mg/dL (8.5-10.1)
[2024-01-28 18:48] LABS: BUN/Creatinine Ratio 2.7 (10.0-20.0)
[2024-01-28 18:50] LABS: Albumin 3.2 g/dL (3.2-4.8); Phosphorus 2.1 mg/dL (2.4-5.1)
[2024-01-28 20:30] VITALS: PULSE 57; RESP 20; O2SAT 98
[2024-01-28] MEDS: hydrALAZINE HCL 20 MG/ML VL IV PRN (21:11)
[2024-01-28] MEDS: EPOETIN ALFA-EPBX 10,000 UNIT/1ML VIAL SC ONE (21:29)
[2024-01-28 22:00] VITALS: BP 164/82; PULSE 57; RESP 20; TEMP 97.4; O2SAT 98
[2024-01-28] MEDS ORDERED: TICAGRELOR 90 MG TAB PO SCH (22:00)
[2024-01-29] VITALS (7 sets, daily range): BP systolic 118–166; BP diastolic 40–74; PULSE 62–88; RESP 16–20; TEMP 97.5–98.1; O2SAT 96–98
[2024-01-29 06:17] LABS: Basophils # (auto) 0.1 10 ^3/uL (0-0.2); Eosinophils # (auto) 0.3 10 ^3/uL (0-0.8); Hemoglobin 7.7 g/dL (13.5-17.5); Mean Corpuscular Volume 87.3 fL (80.0-100.0); Monocytes # (auto) 0.7 10 ^3/uL (0-1.3); White Blood Cell 8.9 10^3/uL (4.4-10.8)
[2024-01-29 06:21] LABS: Basophils % (auto) 1.3 % (0.0-2.0); Chloride 104 mmol/L (98-107); Eosinophils % (auto) 3.1 % (0.0-7.0); Hematocrit 24.2 % (41.0-53.0); Lymphocytes % (auto) 11.5 % (10.0-50.0); Mean Corpuscular Hemoglobin 27.9 pg (28.0-32.0); Mean Corpuscular Hgb Conc. 31.9 g/dL (32.0-36.0); Monocytes % (auto) 8.1 % (0.0-12.0); Neutrophils # (auto) 6.8 10 ^3/uL (1.6-8.6); Red Blood Cells 2.77 10^6/uL (4.5-5.90); Sodium 139 mmol/L (136-145)
[2024-01-29 06:22] LABS: Anion Gap 5 (5-15); Carbon Dioxide 30 mmol/L (20-30)
[2024-01-29 06:27] LABS: Glucose 105 mg/dL (74-106)
[2024-01-29 06:45] LABS: BUN/Creatinine Ratio 3.2 (10.0-20.0); Blood Urea Nitrogen 10 mg/dL (9-23)
[2024-01-29 08:55] LABS: Hepatitis B Surface Antigen Negative (Negative)
[2024-01-29 09:15] LABS: Hepatitis A Ab IgM Negative
[2024-01-29 09:16] LABS: Hepatitis B Core IgM Negative; Hepatitis C Antibody Negative (Negative)
[2024-01-29] MEDS: IRON SUCROSE COMPLEX 100 ML IV SCH (12:31)
[2024-01-29] MEDS ORDERED: LEVO75TA6 PO (18:18)
[2024-01-29] MEDS ORDERED: ATOR40TA52 PO (18:18)
[2024-01-29] MEDS ORDERED: TAMS-35 PO (18:18)
[2024-01-29] MEDS ORDERED: NIFE1TAB30 PO (18:18)
[2024-01-29] MEDS ORDERED: FURO40TA4 PO (18:18)
[2024-01-29] MEDS ORDERED: TICA90TA PO (18:18)
[2024-01-29] MEDS ORDERED: CALC667C PO (18:18)
[2024-01-29] MEDS ORDERED: PANT40T PO (18:18)
[2024-01-29] MEDS ORDERED: GABA-1250 PO (18:18)
[2024-01-29] MEDS ORDERED: ACET-1304 PO (18:33)
[2024-01-30 05:00] VITALS: BP 150/41; PULSE 77; RESP 22; TEMP 98.1; O2SAT 98
[2024-01-30 06:42] LABS: Eosinophils # (auto) 0.3 10 ^3/uL (0-0.8); Lymphocytes # (auto) 1.1 10 ^3/uL (0.4-5.4)
[2024-01-30 06:44] LABS: Basophils # (auto) 0.1 10 ^3/uL (0-0.2); Basophils % (auto) 1.2 % (0.0-2.0); Hematocrit 23.5 % (41.0-53.0); Hemoglobin 7.5 g/dL (13.5-17.5); Lymphocytes % (auto) 10.9 % (10.0-50.0); Mean Corpuscular Hemoglobin 27.8 pg (28.0-32.0); Mean Corpuscular Hgb Conc. 32.1 g/dL (32.0-36.0); Mean Corpuscular Volume 86.7 fL (80.0-100.0); Monocytes # (auto) 0.7 10 ^3/uL (0-1.3); Monocytes % (auto) 7.3 % (0.0-12.0); Neutrophils # (auto) 7.6 10 ^3/uL (1.6-8.6); Neutrophils % (auto) 77.6 % (37.0-80.0); Red Blood Cells 2.71 10^6/uL (4.5-5.90); Red Cell Distribution Width 19.5 % (11.8-14.3); White Blood Cell 9.8 10^3/uL (4.4-10.8)
[2024-01-30 07:00] LABS: Chloride 105 mmol/L (98-107); Potassium 3.6 mmol/L (3.5-5.1); Sodium 136 mmol/L (136-145)
[2024-01-30 07:01] LABS: Anion Gap 3 (5-15); Calcium 7.8 mg/dL (8.7-10.4); Carbon Dioxide 28 mmol/L (20-30)
[2024-01-30 07:06] LABS: BUN/Creatinine Ratio 3.6 (10.0-20.0); Blood Urea Nitrogen 15 mg/dL (9-23); Glucose 93 mg/dL (74-106)
[2024-01-30 08:42] VITALS: BP 148/38; PULSE 78; RESP 18; TEMP 97.6; O2SAT 98
[2024-01-30 12:47] VITALS: BP 186/70; PULSE 77; RESP 18; TEMP 98; O2SAT 96
[2024-01-30 13:03] VITALS: BP 141/62; PULSE 86; RESP 18
[2024-01-30] MEDS ORDERED: VANCOMYCIN 500 MG in D5W 5% 100 ML IV ONE (16:00)
== END 2024-01-30 13:32 | disposition home health service (06) | DRG 239 ==
LOC: UNDOADMIN 12:57 → WEST WING 12:57
PROVIDERS: ADMIT Internal Medicine; ATTEND Internal Medicine
PROC: 0Y6M0ZD Detachment at Right Foot, Partial 4th Ray, Open Approach (ICD-10-PCS; 2024-01-27)
PROC: 0Y6M0ZC Detachment at Right Foot, Partial 3rd Ray, Open Approach (ICD-10-PCS; 2024-01-27)
PROC: 0Y6M0ZB Detachment at Right Foot, Partial 2nd Ray, Open Approach (ICD-10-PCS; 2024-01-27)
PROC: 0Y6M0Z9 Detachment at Right Foot, Partial 1st Ray, Open Approach (ICD-10-PCS; 2024-01-27)
PROC: 0Y6M0ZF Detachment at Right Foot, Partial 5th Ray, Open Approach (ICD-10-PCS; principal; 2024-01-27 09:02)
PROC: 5A1D70Z Performance of Urinary Filtration, Intermittent, Less than 6 Hours Per Day (ICD-10-PCS; 2024-01-28)
DX: E11.52 Type 2 diabetes mellitus with diabetic peripheral angiopathy with gangrene (principal); N18.6 End stage renal disease; I12.0 Hypertensive chronic kidney disease with stage 5 chronic kidney disease or end stage renal disease; E11.22 Type 2 diabetes mellitus with diabetic chronic kidney disease; E11.21 Type 2 diabetes mellitus with diabetic nephropathy; E78.5 Hyperlipidemia, unspecified; Z99.2 Dependence on renal dialysis; I25.2 Old myocardial infarction; Z88.3 Allergy status to other anti-infective agents; Z88.8 Allergy status to other drugs, medicaments and biological substances; Z82.49 Family history of ischemic heart disease and other diseases of the circulatory system
CPT/HCPCS: 36415; 71045; 80048; 80053; 80061; 80069; 80074; 80202; 82728; 82962; 83540; 83550; 83735; 85025; 85610; 85730; 87081; 90935; 92610; 93005; G0378; J0690; J1100; J1756; J1885; J2001; J2405; J2704; J7060